=== PATIENT | female | born 1990 | race Caucasian/White ===

== ENCOUNTER 2016-04-24 08:58 | Emergency (ER) | payer OTHER ==
[~2016-04-24] VITALS: Ht 157.5 cm; Wt 59.0 kg
[2016-04-24 09:04] VITALS: BP 112/72
--- NOTE | 2016-04-24 09:05 | NUR ---
PT CHANGED INTO GOWN. URINE CUP GIVEN TO AMB TO RESTROOM FOR SAMPLE. PT EILEEN WELL.
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
--- NOTE | 2016-04-24 09:15 | NUR ---
EPatient being evaluated by physician at bedside.
--- NOTE | 2016-04-24 09:20 | NUR ---
X-Ray at bedside.
[2016-04-24 10:00] VITALS: BP 111/78
--- NOTE | 2016-04-24 10:00 | NUR ---
Patient discharged with v/s stable. Written and verbal after care instructions given and explained. Patient alert, oriented and verbalized understanding of instructions. Ambulatory with steady gait. All questions addressed prior to discharge. ID band removed. Patient advised to follow up with PMD. Rx of robaxin, motrin and norco given. Patient educated on indication of medication including possible reaction and side effects. Opportunity to ask questions provided and answered.
== END 2016-04-24 10:00 | disposition home or self-care (01) ==
LOC: MED 08:58
DX: S20.212A Contusion of left front wall of thorax, initial encounter (principal); S40.012A Contusion of left shoulder, initial encounter; Z88.0 Allergy status to penicillin; Z91.018 Allergy to other foods; Z90.89 Acquired absence of other organs; V89.2XXA Person injured in unspecified motor-vehicle accident, traffic, initial encounter; Y93.89 Activity, other specified; Y92.89 Other specified places as the place of occurrence of the external cause; Y99.8 Other external cause status
CPT/HCPCS: 71020; 73000; 73030; 99284